=== PATIENT | male | born 1980 | race Caucasian/White ===

== ENCOUNTER 2020-04-12 08:33 | Outpatient (CLI) | payer OTHER ==
--- NOTE | 2020-04-12 11:44 | SLEEP CARE CONSULTATION ---
Information from patient questionnaire entered by Charlotte Raymundo. I have reviewed and concur with the information entered by Charlotte Raymundo. This document represents the service I personally performed and the decisions made by me, Mirela Porter ARNP. History of Present Illness Service Date and Time: 04/12/2020 0833 Reason for Visit: New patient, Previously diagnosed sleep apnea (mild AHI - 5.1), sleep apnea on CPAP therapy Chief Complaint: reports: Snoring (occasional soft snore on CPAP), Excessive daytime sleepiness (very occasional, improved with Cpap), Frequent awakenings at night (usually for the bathroom 1-3 times), Other (sleep apnea). denies: Insomnia, Unrefreshed sleep, Observed pauses in breathing, Fatigue Duration of Symptoms: 2 years Usual bedtime: 8-9 pm Snores at night: Yes (occasional, light snore with Cpap) Observed to quit breathing while asleep: No Sleeps alone due to snoring: No Number of times waking at night: 2-3 Reasons for waking at night: reports: Bathroom. denies: Choking, Snoring, Gasping for air, Pain, Other Toss, Turn, or Twitch while sleeping: Yes Recalls having dreams: Yes Usually gets out of bed at: 4-6 am Feels refreshed in the morning: Yes Morning headache: No Sleepy or fatigued during the day: No Ever fallen asleep while driving: No Takes day naps: No Dreams during day naps: No Prior sleep studies: Yes Year and Where: 2019 - [facility] Additional HPI information: Patient was previously diagnosed with BRIANNA in 2019. He has been in [place] since May and stopped getting his supplies from his previous provider. He does get some mask leaks, but has been unable to change the mask out since May. I reviewed his Ravenswood score and while he does report improvement with CPAP therapy he is still marking high at 12. He states he still can get sleepy when reading, which has been his whole life. - Parasomnia Symptoms Ever been unable to move upon waking from sleep: No Walks in sleep: No Talks in sleep: Yes Ever acted out dreams in sleep: Yes Ever felt weak in the knees when startled or emotional: No Bothered by creepy, crawly, restless sensations in legs: No Problems with memory or concentration: No CPAP Compliance Data - Data Reviewed with Patient Average duration of nightly device use: 10.45 Compliance rate %: 100 (180 days) Current pressure setting (cmH2O): 6 Humidity settin Average residual AHI: 0.5 Central apnea: 0.0 Obstructive apnea: 0.1 Subjective Patient concerns: denies: aerophagia, mask discomfort, air blowing in eyes, mask leak noise, condensation in mask/hose, nasal congestion, dry mouth, nose, throat, epistaxis, other Observed to snore while using device: Yes (mild and occasional) Current pressure setting perceived as: comfortable On therapy, patient: reports: sleeping better, awakening more refreshed, being more awake and alert during the day, more rested overall, drowsiness while driving (rarely now) Initial Ravenswood Sleepiness Scale score: 12 (in 2019) Current Ravenswood Sleepiness Scale score: 12 (12/28/19) Past Medical History Past Medical History: reports: Hypertension (lisinopril), Anxiety (prozac), GERD (prilosec). 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 Patient is and lives in [place]. Have you smoked in the past 12 months: No Cigarettes per day (20/pack): 20 Years of smokin Quit date: 2009 Smoking Pack Years: 9.0 Alcohol use: Yes Alcohol amount and frequency: 3-4 drinks a week Caffeine use: Yes Family History Family history of sleep disordered breathing: Yes Family Hx Sleep Apnea: Sibling: Sleep apnea - Treated (sister) Allergies and Home Medications Drug allergies reviewed: Yes (NKDA) Home medication list reviewed: Yes (claritin, flonase, prozac, prilosec, lisinopril) Review of Systems Weight gain over past 5 years: 25 Cardiovascular: reports: high blood pressure. denies: palpitations, chest pain, irregular heart rate or pulse, leg or foot swelling, have to sleep sitting up Respiratory: denies: shortness of breath, chronic cough Gastrointestinal: reports: heartburn. denies: difficulty swallowing, diarrhea, abdominal pain Urinary: reports: impotence. denies: incontinence, frequency, urgency, other Neurological: denies: headaches, head trauma, gait or balance problems, fainting or unconsciousness Psychiatric: reports: anxiety. denies: Attention Deficit Hyperactivity, depression Ear/Nose/Throat: reports: nasal congestion, sinus problems (sinus allergies), wisdom teeth removed. denies: nose bleeds, dry mouth/throat, hoarseness, injury to nose, tonsillectomy Endocrine: reports: too hot or cold (increased heat makes feel unwell, generally sick). denies: thyroid disease, history of goiter, sluggishness, excessive thirst, increased appetite, increased urination, unexplained weakness Musculoskeletal: denies: joint pain, neck pain, back pain, joint swelling, mu scle pain or cramping, mobility problems Immunologic: reports: sneezing, allergies to food or environment. denies: rash, itching Physical Exam Heart Rate: 86 O2 Saturation: 98 Height: 6 ft 2 in Weight: 280 lb Body Mass Index: 35.9 BMI Classification: Obese Neck circumference: 17.5 (inches) Nasal exam: negative: erythema, excoriation, scabs, blood tinged nasal secretions, other HEENT: No craniofacial malformation Nostrils: patent to airflow Turbinates: normal Septum: midline Mouth and throat: normal Soft palate: normal Hard palate: normal Uvula: normal Uvula visualization: 100% Mallampati Class I Tongue: normal in size Tonsils: 1+ Chin and jaw: normal size and position Neck: normal w/o lymphadenopathy or thyromegaly Heart: regular rate and rhythm Lungs: clear bilaterally Impression and Plan 1. Obstructive Sleep Apnea-Hypopnea Syndrome, as previously diagnosed. He continues to snore occasionally lightly with history of gasping or choking in sleep, frequent awakening during the night, and excessive daytime sleepiness. He is having much more restful sleep and sleepiness is now intermittent. His Ravenswood score is still elevated at 12 but he has had good improvement of his symptoms with treatment. I feel he is responding well with average AHI level at 0.5 on CPAP. Patient has gained weight in past 5 years. Currently patients BMI is 35.9. Obesity increases the risk of apnea, CPAP pressure requirements and overall health risks especially cardiovascular and diabetes. Thus patient is advised to try to lose weight. Weight loss can be done with reducing portion size, reducing refined foods and balancing content with vegetables, fruit and protein. He was also advised to increase exercise daily with activities such as walking if unable to get back to gym due to Covid-19 pandemic. The BMI chart was reviewed. The patient's CPAP pressure range will be continued on 6 mmH20 The pathophysiology of obstructive sleep apnea-hypopnea syndrome was discussed with the patient and health risks of cardiovascular and cerebrovascular disease if not treated. Risks of drowsy driving discussed in detail and patient advised to avoid long distance driving and to stock puller at the first sign of drowsiness. Patient agreed to plan. * Supplies and mask refitting ordered. * Avoid long distance driving or driving when feeling sleepy. * Avoid alcohol, sedative and muscle relaxant around bedtime. * Attempt to lose weight. * Return for annual follow-up in 1 year. Prescriptions: CPAP Follow up with Sleep Care in: 1 year Visit Type: In Office Time Spent with Patient (minutes): 35 Provider Statement: I spent 100% of the Face to Face Visit with the patient with greater than 50% spent counseling the patient and coordination of care.
== END 2020-04-12 08:34 | disposition home or self-care (01) ==
LOC: SC 08:33
PROVIDERS: ATTEND Nurse Practitioner Family
DX: G47.33 Obstructive sleep apnea (adult) (pediatric) (principal); E66.9 Obesity, unspecified; Z68.35 Body mass index [BMI] 35.0-35.9, adult
CPT/HCPCS: 99204; 99212